=== PATIENT | female | born 1985 | race Caucasian/White ===

== ENCOUNTER → 2016-10-12 | Outpatient (CLI) | payer OTHER | LOC: FIMAGING 09:38 | PROVIDERS: ATTEND Obstetrics & Gynecology | DX: Z34.02 Encounter for supervision of normal first pregnancy, second trimester (principal); Z3A.22 22 weeks gestation of pregnancy ==

== ENCOUNTER 2017-02-10 15:34 | Inpatient (IN) | payer OTHER ==
[2017-02-10] MEDS ORDERED: LR 1,000 ML IV PRN (16:58)
[2017-02-10] MEDS ORDERED: OXYTOCIN 20 UNIT in LR 1,000 ML IV PRN (16:58)
[2017-02-10] MEDS ORDERED: OLIVE OIL 118 ML BTL MISC PRN (16:58)
[2017-02-10] MEDS ORDERED: TERBUTALINE SULFATE 1 MG/ML VIAL IV PRN (16:58)
[2017-02-10] MEDS ORDERED: EPSOM SALT 454 GM TP PRN (16:58)
[2017-02-10] MEDS ORDERED: FAMOTIDINE 20 MG/NACL 50 ML IV PRN (17:00)
[2017-02-10] MEDS ORDERED: ONDANSETRON 4 MG/2 ML VIAL IVP PRN (17:03)
[2017-02-10] MEDS ORDERED: LIDOCAINE 1% 300 MG/30 ML SDV ONE (17:04)
[2017-02-10] MEDS ORDERED: OLIVE OIL 118 ML BTL ONE (17:05)
[2017-02-10] MEDS ORDERED: AMMONIA AROMATIC 1 EACH AMP IH ONE (17:05)
[2017-02-10] MEDS ORDERED: TERBUTALINE SULFATE 1 MG/ML VIAL ONE (17:06)
[2017-02-10] MEDS ORDERED: MISOPROSTOL 200 MCG TAB ONE (17:06)
[2017-02-10] MEDS ORDERED: FAMOTIDINE 20 MG/2 ML SDV IVP PRN (17:15)
[2017-02-10 17:33] LABS: % IMMATURE GRANULYOCYTES 0.4 % (0.0-1.1); ABSOLUTE IMMATURE GRANULOCYTES 0.03 10^3/uL (0.00-0.10); ADD DIFF? NO; ADD MORPH? NO; ADD SCAN? NO; ATYPICAL LYMPHOCYTE FLAG 0 (0-99); FRAGMENT RBC FLAG 0 (0-99); HEMATOCRIT 39.2 % (38.0-47.0); HEMOGLOBIN 13.7 g/dL (12.6-16.3); LEFT SHIFT FLG 0 (0-99); LIPEMIA HEMOLYSIS FLAG 90 (0-99); MEAN CELL HEMOGLOBIN 33.3 pg (27.9-34.1); MEAN CELL HEMOGLOBIN CONCENTR. 34.9 g/dL (32.4-36.7); MEAN CELL VOLUME 95.4 fL (81.5-99.8); MEAN PLATELET VOLUME 12.5 fL (8.7-11.7); PLATELET CLUMPS FLAG 0 (0-99); PLATELET COUNT 189 10^3/uL (150-400); RED BLOOD CELL COUNT 4.11 10^6/uL (4.18-5.33); RED CELL DISTRIBUTION WIDTH 11.9 % (11.5-15.2)
[2017-02-10] MEDS: MISOPROSTOL 100 MCG TAB PO SCH (19:47)
[2017-02-10] MEDS ORDERED: HYDROmorphONE/DILAUDID 1 MG/ML INJ ONE (22:42)
--- NOTE | 2017-02-10 22:49 | SOAPPROG ---
SOAP Progress Note Assessment/Plan: Assessment: Plan: 02/10/17 22:46 TX During labor for pain relief and encourage progression. Spent 1.25 hours acupressure on SP6 through SP2 during each contraction, needles in NADA, brain point for pain; GB21, LI4, Yin Idckson. During transition and through , acupressure on UB32, GB29 and GB21, down paraspinals Progressed from 3 to 10 in 1.5 hours. Objective: Laboratory Results 02/10/17 17:15 ICD10 Worksheet Patient Problems: Problems Problem Status Onset SROM (spontaneous rupture of membranes) Acute (spontaneous vaginal delivery) Acute
[2017-02-10] MEDS ORDERED: HYDROmorphONE/DILAUDID 1 MG/ML INJ IVP ONE (23:00)
[2017-02-10] MEDS ORDERED: ACETAMINOPHEN 325 MG TAB PO PRN (23:32)
[2017-02-10] MEDS ORDERED: HYDROCORTISONE 0.5% CREAM TP PRN (23:32)
[2017-02-10] MEDS ORDERED: SIMETHICONE 80 MG TAB CHEW PO PRN (23:32)
--- NOTE | 2017-02-10 23:39 | PDGENHP ---
History and Physical - Chief Complaint SROM - History of Present Illness This is a 31yo with IUP@ 39-2wks that presents to L&D with complaints of SROM @ 0100. She denies any regular contractions or VB. She reports +FM. She reports clear odorless fluid. She denies any headaches, visual changes, epigastric pain. History Information - Allergies/Home Medication List Allergies/Adverse Reactions: No Known Allergies Allergy (Unverified 02/10/17 16:08) Home Medications: Vit27&Calcium/Iron/FA [ Rx 1 Tablet (RX)] 1 each PO DAILY 02/10 [Last Taken Unknown] I have personally reviewed and updated: family history, medical history, social history, surgical history - Past Medical History no pertinent PMH - Surgical History Reports: no pertinent surgical hx - Family History Positive for: non-pertinent - Social History Smoking Status: Never smoked Alcohol Use: None Drug Use: None Review of Systems Review of Systems: ROS: 10pt was reviewed & negative except for what was stated in HPI & below Constitutional: Reports: no symptoms EENMT: Reports: no symptoms Cardiac: Reports: no symptoms Respiratory: Reports: no symptoms Gastrointestinal: Reports: no symptoms Genitourinary: Reports: no symptoms Muscolosketal: Reports: no symptoms Skin: Reports: no symptoms Neurological: Reports: no symptoms Hematologic/Lymphatic: Reports: no symptoms Immunologic/Allergy: Reports: no symptoms Physical Exam Physical Exam: stable Constitutional: no apparent distress, appears nourished Eyes: PERRL Ears, Nose, Mouth, Throat: moist mucous membranes Cardiovascular: regular rate and rhythym, no murmur, rub, or gallop Respiratory: no respiratory distress, no rales or rhonchi, clear to auscultation Gastrointestinal: normoactive bowel sounds, soft, non-tender abdomen (gravid) Skin: warm, normal color Neurologic: AAOx3 Psychiatric: interacting appropriately Lab Data & Imaging Review 02/10/17 17:15 WBC 8.44 10^3/uL (3.80-9.50) 02/10/17 17:15 RBC 4.11 10^6/uL (4.18-5.33) L 02/10/17 17:15 Hgb 13.7 g/dL (12.6-16.3) 09/09/17 17:15 Hct 39.2 % (38.0-47.0) 02/10/17 17:15 MCV 95.4 fL (81.5-99.8) 02/10/17 17:15 MCH 33.3 pg (27.9-34.1) 02/10/17 17:15 MCHC 34.9 g/dL (32.4-36.7) 02/10/17 17:15 RDW 11.9 % (11.5-15.2) 02/10/17 17:15 Plt Count 189 10^3/uL (150-400) 02/10/17 17:15 MPV 12.5 fL (8.7-11.7) H 02/10/17 17:15 Neut % (Auto) 72.7 % (39.3-74.2) 02/10/17 17:15 Lymph % (Auto) 19.2 % (15.0-45.0) 02/10/17 17:15 [place] % (Auto) 7.1 % (4.5-13.0) 02/10/17 17:15 Eos % (Auto) 0.4 % (0.6-7.6) L 02/10/17 17:15 Baso % (Auto) 0.2 % (0.3-1.7) L 02/10/17 17:15 Nucleat RBC Rel Count 0.0 % (0.0-0.2) 02/10/17 17:15 Absolute Neuts (auto) 6.14 10^3/uL (1.70-6.50) 02/10/17 17:15 Absolute Lymphs (auto) 1.62 10^3/uL (1.00-3.00) 02/10/17 17:15 Absolute Monos (auto) 0.60 10^3/uL (0.30-0.80) 02/10/17 17:15 Absolute Eos (auto) 0.03 10^3/uL (0.03-0.40) 02/10/17 17:15 Absolute Basos (auto) 0.02 10^3/uL (0.02-0.10) 02/10/17 17:15 Absolute Nucleated RBC 0.00 10^3/uL (0-0.01) 02/10/17 17:15 Immature Gran % 0.4 % (0.0-1.1) 02/10/17 17:15 Immature Gran # 0.03 10^3/uL (0.00-0.10) 02/10/17 17:15 Membrane Rupture POSITIVE (NEGATIVE) H 02/10/17 16:19 Patient ABO/Rh A POSITIVE 02/10/17 17:15 Antibody Screen NEGATIVE 02/10/17 17:15 Assessment & Plan Assessment: [id number] with IUP@ 39-2wks SROM GBS Negative cat 1 FHR Tracing Plan: Admit to L&D cytotec 50mcg PO anticipate
[2017-02-10] MEDS: IBUPROFEN 600 MG TAB PO PRN (23:50)
--- NOTE | 2017-02-10 23:50 | OBDEL ---
Info Type: Vaginal Presentation at Delivery: Vertex L&D Analgesia/Anesthesia Type: Nitrous GBS+: No Intrapartum Medications: Generic Name Dose Route Start Last Admin Trade Name Maximino PRN Reason Stop Dose Admin Misoprostol 50 mcg 02/10/17 22:00 02/10/17 19:47 Cytotec PO 08/09/17 21:59 50 mcg Q4 JIMI Administration Indications for Delivery: SROM Vaginal Delivery - Delivery Provider Delivery Physician/CNM: Aaliyah Harper Proctoring Provider: Leela Hardy - Labor and Delivery Onset of Contractions Date: 02/10/17 Onset of Contractions Time: 20:00 Onset of Contractions Type: Augmented Rupture of Membranes Date: 02/10/17 Rupture of Membranes Time: 01:15 Rupture of Membranes Type: Spontaneous Amniotic Fluid Color: Clear Dilation Complete Date: 02/10/17 Dilation Complete Time: 20:25 Placenta Delivery Date: 02/10/17 Placenta Delivery Time: 20:35 Total Hours of Labor: 0 Laceration: 2nd Degree, Other (Specify) (bilateral sulcus) Repair: 3-0, Vicryl Vaginal Sponge Count Correct: Yes Vaginal Needle Count Correct: Yes Vaginal Sweep Performed: No EBL: 300 Delivery Events: None - Medications Labor Augmentation/Induction Methods Used: Misoprostol [place] Data [place] Delivery Date: 02/10/17 Delivery Time: 20:28 GALLITO: 02/15/17 Gestational Age: 39 week(s) and 2 day(s) Sex of Infant: Female Score (1 Min): 8 Score (5 Min): 9 ICD10 Worksheet Patient Problems: Problems Problem Status Onset SROM (spontaneous rupture of membranes) Acute (spontaneous vaginal delivery) Acute - ICD10 Problem Qualifiers (1) (spontaneous vaginal delivery) (2) SROM (spontaneous rupture of membranes)
[2017-02-11] MEDS: MISOPROSTOL 100 MCG TAB PO SCH ×3 (05:50→11:21)
[2017-02-11] MEDS: IBUPROFEN 600 MG TAB PO PRN ×3 (06:19→19:38)
[2017-02-11] MEDS: HYDROCODONE/APAP 5/325 TAB PO PRN ×2 (10:05→15:08)
[2017-02-11] MEDS: DOCUSATE SODIUM 100 MG CAP PO PRN ×2 (10:06→19:39)
--- NOTE | 2017-02-11 13:48 | OBPP ---
Progress Note Assessment/Plan: Assessment: pood# 1 s/p anemia breast feeding tailbone pain Plan: routine post care iron pelvic floor pt outpatient if tailbone pain persists 02/11/17 13:46 Subjective/ Course: 02/11/17 13:47 patient is doing well overall. pain is well controlled with norco and ibuprofen. primary complaint is tailbone pain. working on breast feeding. denies headache and changes in vision. Objective: 02/11/17 06:00 Patient ABO/Rh A POSITIVE 02/10/17 17:15 Temp Pulse Resp BP Pulse Ox 36.4 C 65 19 114/77 94 02/11/17 08:30 02/11/17 08:30 02/11/17 08:30 02/11/17 08:30 02/11/17 08:30 Uterine Position/Fundal Height: Umbilicus -2 Uterine Tone: Firm Physical Exam - Physical Exam Neck: non-tender, full range of motion, supple Respiratory: chest non-tender, lungs clear, normal breath sounds Cardiac/Chest: normal peripheral pulses, regular rate, rhythm Abdomen: normal bowel sounds, non-tender Extremities: normal range of motion, non-tender, normal inspection, normal capillary refill Skin: normal color, warm/dry Neuro/Psych: no motor/sensory deficits, alert, normal mood/affect, oriented x 3
[2017-02-11] MEDS: IRON POLYSAC/IRON HEME 28 MG TAB PO SCH (16:32)
[2017-02-12] MEDS: IBUPROFEN 600 MG TAB PO PRN ×3 (02:41→15:03)
[2017-02-12 08:33] VITALS: BP 119/85; PULSE 67; RESP 17; TEMP 98.5; O2SAT 100
--- NOTE | 2017-02-12 08:34 | OBGCSDC ---
General Delivery Information - General Info : 1 Para: 1 Abortions: 0 Type: Vaginal L&D Analgesia/Anesthesia Type: Local, Nitrous Admission Date: 02/10/17 Labs: Patient ABO/Rh A POSITIVE 02/10/17 17:15 Hct 33.6 % (38.0-47.0) L 02/11/17 06:00 Hep Bs Antigen NEGATIVE (NEGATIVE) 02/10/17 19:00 - Hospital Course : 02/11/17 13:47 patient is doing well overall. pain is well controlled with norco and ibuprofen. primary complaint is tailbone pain. working on breast feeding. denies headache and changes in vision. 02/12/17 08:30 Doing well denies pain with norco and ibuprofen to assist nipple redness tenderness ff@u scant rubra lochia perineum approximated plan discharge with instructions pain well managed, norco, ibuprofen to assist with pain relief, anemic, iron, continue PNV, ss infection, contraception, pain management, pericare, pelvic rest, depressionfu 4 weeks and 6 weeks pp Vaginal - Delivery Provider Delivery Physician/CNM: Aaliyah Harper - Diagnosis Labor: Augmented Rupture of Membranes Type: Spontaneous Amniotic Fluid Color: Clear Laceration: 2nd Degree, Other (Specify) (bilateral sulcus) Repair: 3-0, Vicryl Delivery Events: None - Delivery EBL: 300 [place] Data [place] Delivery Date: 02/10/17 Delivery Time: 22:28 GALLITO: 02/15/17 Gestational Age: 39 week(s) and 4 day(s) Sex of : Female Weight (gm): 2942 g Score (1 Min): 8 Score (5 Min): 9
--- NOTE | 2017-02-12 08:35 | OBPROG ---
Labor Progress Note Assessment/Plan: Assessment: Plan: Objective: 02/11/17 06:00 Patient ABO/Rh A POSITIVE 02/10/17 17:15 Temp Pulse Resp BP Pulse Ox 36.9 C 67 17 119/85 H 100 02/12/17 08:00 02/12/17 08:00 02/12/17 08:00 02/12/17 08:00 02/12/17 08:00 - SVE Amniotic Fluid Color: Clear Dilation Complete Date: 02/10/17 Dilation Complete Time: 20:25 - Physical Exam General Appearance: WD/WN, alert, no apparent distress Abdomen: other (ff@u scant rubra lochia) Extremities: normal range of motion, Nuria's sign (negative bilaterally) DTR- Lower Extremities: Knee (R): 1+, Knee (L): 1+ (no clonus) Skin: normal color, warm/dry Neuro/Psych: no motor/sensory deficits, alert, normal mood/affect, oriented x 3 Oxytocin Orders Assessment - Pre-Induction/Augmentation Assessment Gestational Age: 39 week(s) and 2 day(s) ICD10 Worksheet Patient Problems: Problems Problem Status Onset SROM (spontaneous rupture of membranes) Acute (spontaneous vaginal delivery) Acute
[2017-02-12] MEDS: DOCUSATE SODIUM 100 MG CAP PO PRN (09:01)
[2017-02-12] MEDS: IRON POLYSAC/IRON HEME 28 MG TAB PO SCH (09:01)
== END 2017-02-12 18:00 | disposition home or self-care (01) | DRG 775 ==
LOC: FLD 15:34 → FOB 02-11 01:30
PROVIDERS: ADMIT Obstetrics & Gynecology; ATTEND Advanced Practice Midwife
PROC: 3E033VJ Introduction of Other Hormone into Peripheral Vein, Percutaneous Approach (ICD-10-PCS; principal; 2017-02-10)
PROC: 10E0XZZ Delivery of Products of Conception, External Approach (ICD-10-PCS; principal; 2017-02-10)
PROC: 0KQM0ZZ Repair Perineum Muscle, Open Approach (ICD-10-PCS; principal; 2017-02-10)
DX: O42.02 Full-term premature rupture of membranes, onset of labor within 24 hours of rupture (principal); O70.1 Second degree perineal laceration during delivery; O90.81 Anemia of the puerperium; Z67.10 Type A blood, Rh positive; Z37.0 Single live birth; Z3A.39 39 weeks gestation of pregnancy
CPT/HCPCS: J1170; J3105